=== PATIENT | male | born 1935 | race Caucasian/White ===

== ENCOUNTER 2021-06-10 13:13 | Emergency (ER) | payer MEDICARE ==
[~2021-06-10] VITALS: Ht 177.8 cm; Wt 175.9 kg
[2021-06-10] MEDS ORDERED: D31000TA2 PO (14:33)
[2021-06-10] MEDS ORDERED: HYDROIN11 EX (14:34)
[2021-06-10] MEDS ORDERED: FURO40TA2 PO (14:34)
[2021-06-10] MEDS ORDERED: INSUDET SC (14:39)
[2021-06-10] MEDS ORDERED: INSU100V3 SQ (14:39)
[2021-06-10] MEDS ORDERED: MEDR1TAB PO (14:40)
[2021-06-10] MEDS ORDERED: METH16TA2 PO (14:40)
[2021-06-10] MEDS ORDERED: METH4TAB8 PO (14:40)
[2021-06-10] MEDS ORDERED: LOPR1TAB6 PO (14:41)
[2021-06-10] MEDS ORDERED: OXYB10TA23 PO (14:42)
[2021-06-10] MEDS ORDERED: PREG50CA2 PO (14:42)
[2021-06-10] MEDS ORDERED: FLOM0.4C39 PO (14:43)
[2021-06-10] MEDS ORDERED: TRAZ-252 PO (14:43)
[2021-06-10] MEDS ORDERED: ALDA25TA2 PO (14:43)
[2021-06-10] MEDS ORDERED: XARE20TA PO (14:44)
--- NOTE | 2021-06-10 14:50 | REP ---
INDICATION: fall. COMPARISON: None. TECHNIQUE: Four views. FINDINGS: Four views of the left femur demonstrate vascular calcification. Osteoarthritis at the knee. There is also femoroacetabular spurring mild in degree. Tendon insertion site spurring is seen on the greater trochanter. No fracture is seen.. . No opaque foreign body noted. IMPRESSION: No traumatic abnormality. Osteoarthritic changes and vascular calcification.. <Electronically signed by iTco Bateman > 06/10/21 [id number]
--- NOTE | 2021-06-10 14:50 | REP ---
INDICATION: fall. COMPARISON: None. TECHNIQUE: Four views of the left knee are provided. FINDINGS: Four views of the left knee demonstrate diffuse osteoporosis and advanced osteoarthritis particularly involving the medial compartment of the knee which shows nearly complete obliteration of the cartilage joint space. There is sclerosis and spurring. A fabella is noted. Vascular calcification is observed. There is calcification along the course the medial collateral ligament in consistent with previous injury to this structure.. No fracture or subluxation is seen. No opaque foreign body noted. IMPRESSION: No acute fracture. Osteoarthritis fairly advanced in the medial compartment and diffuse osteopenia.. <Electronically signed by Tico Bateman > 06/10/21 [id number]
--- NOTE | 2021-06-10 14:53 | REP ---
INDICATION: fall. COMPARISON: Left knee today TECHNIQUE: Four views FINDINGS: There is narrowing with [id number] appearance of the medial compartment of the knee representing severe chondromalacia. Some old avulsion fragments are seen adjacent to the medial aspect of the femoral condyle at the medial joint line and above it. Tibial spine spurs are noted. Patellofemoral joint spurs seen and a spur at the insertion of the quadriceps tendon. Vascular calcification in the distal femoral, popliteal and proximal trifurcation vessels in the upper calf. I do not see fracture or focal bone lesion the shaft of the tibia or fibula. The proximal tibiofibular articulation was grossly intact. There is diffuse extensive subcutaneous edema throughout the lower leg and ankle. Small spur at the insertion of the patellar tendon and slightly larger at the insertion of the Achilles tendon on the lateral view. Some scattered benign venous calcifications are seen in the soft tissues as well. Distal tibia and fibula and ankle without fracture. IMPRESSION: 1. Degenerative changes at the knee, most severe in the medial compartment with [id number] severe chondromalacia and osteophytes at all 3 joint margins as well as the tibial spines. 2. No fracture of the tibia or fibula. 3. Heel spur and insertional spur for quadriceps, patellar and Achilles tendons. 4. Extensive soft tissue swelling, subcutaneous edema, vascular calcifications of arteries throughout the lower leg and multiple venous calcifications or phleboliths. <Electronically signed by Rodrigo Rico > 06/10/21 [id number]
[2021-06-10 15:30] VITALS: BP 158/82
== END 2021-06-10 16:23 | disposition home or self-care (01) ==
LOC: M ED 13:13
DX: M25.562 Pain in left knee (principal); M17.12 Unilateral primary osteoarthritis, left knee; N18.9 Chronic kidney disease, unspecified; I48.91 Unspecified atrial fibrillation; I50.9 Heart failure, unspecified; Z79.4 Long term (current) use of insulin; Z79.899 Other long term (current) drug therapy